=== PATIENT | male | born 1995 | race Caucasian/White ===

== ENCOUNTER 2016-11-25 17:22 | Inpatient (IN) | payer BC, OTHER ==
[~2016-11-25] VITALS: Ht 180.3 cm; Wt 73.0 kg
[2016-11-25] MEDS ORDERED: NS IV 1000 ML 1,000 ML ONE (17:31)
[2016-11-25] MEDS ORDERED: inSUlin (REGULAR) HUMAN 1 UNIT/0.01 ML (CHARGE PER UNIT) IV STA (17:32)
[2016-11-25] MEDS ORDERED: inSUlin (REGULAR) HUMAN 1 UNIT/0.01 ML (CHARGE PER UNIT) ONE (17:32)
[2016-11-25] MEDS ORDERED: FAMOTIDINE 20MG/2ML IV (PEPCID) IV STA (17:32)
[2016-11-25] MEDS ORDERED: NS IV 1000 ML 1,000 ML IV ONE (17:32)
[2016-11-25] MEDS ORDERED: LACTATED RINGERS 1,000 ML IV ONE ×4 (17:37→19:08)
[2016-11-25] MEDS ORDERED: fentaNYL INJECTION 100 MCG/2 ML AMP ONE (17:37)
[2016-11-25 17:39] LABS: BASOPHILS # (AUTO) 0.1 10^3/uL (0.0-0.1); BASOPHILS % (AUTO) 0 % (0-10); EOSINOPHILS % (AUTO) 0 % (0-10); LYMPHOCYTES # (AUTO) 2.8 X 10^3 (1.0-4.0); LYMPHOCYTES % (AUTO) 15 % (12-44); MEAN CORPUSCULAR HEMOGLOBIN 30 PG (25-34); MEAN CORPUSCULAR HGB CONC 35 G/DL (32-36); MEAN CORPUSCULAR VOLUME 84 FL (80-99); MEAN PLATELET VOLUME 12.5 FL (7.4-10.4); MONOCYTES # (AUTO) 1.3 X 10^3 (0.0-1.0); MONOCYTES % (AUTO) 7 % (0-12); NEUTROPHILS # (AUTO) 14.9 X 10^3 (1.8-7.8); NEUTROPHILS % (AUTO) 78 % (42-75); PLATELET COUNT 176 10^3/uL (130-400); RED BLOOD COUNT 5.35 10^6/uL (4.35-5.85); RED CELL DISTRIBUTION WIDTH 12.5 % (10.0-14.5); WHITE BLOOD COUNT 19.1 10^3/uL (4.3-11.0)
[2016-11-25] MEDS ORDERED: fentaNYL INJECTION 100 MCG/2 ML AMP IVP STA (17:39)
[2016-11-25] MEDS ORDERED: ONDANSETRON 4 MG/2 ML (SDV) Z0FRAN IVP ONE (17:45)
--- NOTE | 2016-11-25 17:55 | ED General ---
General Stated Complaint: VOMITING,HIGH SUGARS,CHEST PAIN Source of Information: Patient Exam Limitations: No Limitations History of Present Illness Time Seen by Provider: 17:26 Initial Comments Here with report of high blood sugars over the last 24 hours. Patient is on insulin pump and has bolused a few times to try to get her sugars down and he can't seem to get them down. Reports increasing nausea and vomiting. He did try to eat today but was unable to eat due to nausea and vomiting. He is also complaining of upper chest pain across shoulders and upper chest. Denies fever or chills. Denies diarrhea. He was having increased urination but that has also decreased now. He has been diabetic for approximately 1-1/2 years. Timing/Duration: 24 Hours Severity: Moderate, Severe Associated Systoms: Chest Pain, No Cough, Diaphoresis, No Fever/Chills, Nausea/ Vomiting, No Shortness of Air, Weakness Allergies and Home Medications Allergies Coded Allergies: No Known Drug Allergies (Unverified , 11/25/16) Home Medications Insulin Aspart 100 Unit/1 Ml Susp, PER INSULIN POD, (Reported) 0.65 UNITS HR Constitutional: see HPI, No chills, diaphoresis, No fever, malaise, weakness EENTM: no symptoms reported Respiratory: no symptoms reported, No cough, No short of breath Cardiovascular: chest pain, No edema Gastrointestinal: no symptoms reported, No abdominal pain, No diarrhea, nausea , vomiting Genitourinary: see HPI, No pain Musculoskeletal: no symptoms reported Skin: no symptoms reported Psychiatric/Neurological: See HPI, Denies Headache, Weakness Hematologic/Lymphatic: No Symptoms Reported All Other Systems Reviewed Negative Unless Noted: Yes Past Cvdzvdm-Ivrsvg-Lotcai Hx Patient Social History Alcohol Use: Denies Use Recreational Drug Use: No Smoking Status: Never a Smoker Surgeries HX Surgeries: No Respiratory Hx Respiratory Disorders: No Cardiovascular Hx Cardiac Disorders: No Neurological Hx Neurological Disorders: No Genitourinary Hx Genitourinary Disorders: No Gastrointestinal Hx Gastrointestinal Disorders: No Musculoskeletal Hx Musculoskeletal Disorders: No Endocrine Hx Endocrine Disorders: Yes Endocrine Disorders: Diabetes, Insulin dep HEENT HX ENT Disorders: No Cancer Hx Cancer: No Reviewed Nursing Assessment Reviewed/Agree w Nursing PMH: Yes Family Medical History Significant Family History: No Pertinent Family Hx Physical Exam Vital Signs Vital Sign - Last 12Hours 11/25/16 11/25/16 11/25/16 00:00 17:25 19:46 Temp 98.2 Pulse 112 Resp 20 B/P (MAP) 98/56 Pulse Ox 98 O2 Delivery Room Air Capillary Refill : General Appearance: WD/WN, Mild Distress (weakness and nausea with upper chest pain) HEENT: PERRL/EOMI, Pharynx Normal Neck: Non Tender, Supple Respiratory: Lungs Clear, Normal Breath Sounds Cardiovascular: Regular Rate, Rhythm, No Murmur Gastrointestinal: Non Tender, Soft Back: Normal Inspection, No CVA Tenderness, No Vertebral Tenderness Extremity: Non Tender, No Calf Tenderness Neurologic/Psychiatric: Alert, Oriented x3 Skin: Normal Color, Warm/Dry Progress/Results/Core Measures Results/Orders Lab Results Laboratory Tests Test 11/25/16 16:30 11/25/16 17:32 11/25/16 18:24 11/25/16 20:21 Range/Units White Blood Count 19.1 H 4.3-11.0 10^3/uL Red Blood Count 5.35 4.35-5.85 10^6/uL Hemoglobin 15.8 13.3-17.7 G/DL Hematocrit 45 40-54 % Mean Corpuscular Volume 84 80-99 FL Mean Corpuscular Hemoglobin 30 25-34 PG Mean Corpuscular Hemoglobin Concent 35 32-36 G/DL Red Cell Distribution Width 12.5 10.0-14.5 % Platelet Count 176 130-400 10^3/uL Mean Platelet Volume 12.5 H 7.4-10.4 FL Neutrophils (%) (Auto) 78 H 42-75 % Lymphocytes (%) (Auto) 15 12-44 % Monocytes (%) (Auto) 7 0-12 % Eosinophils (%) (Auto) 0 0-10 % Basophils (%) (Auto) 0 0-10 % Neutrophils # (Auto) 14.9 H 1.8-7.8 X 10^3 Lymphocytes # (Auto) 2.8 1.0-4.0 X 10^3 Monocytes # (Auto) 1.3 H 0.0-1.0 X 10^3 Eosinophils # (Auto) 0.0 0.0-0.3 10^3/uL Basophils # (Auto) 0.1 0.0-0.1 10^3/uL Neutrophils % (Manual) 75 % Lymphocytes % (Manual) 12 % Monocytes % (Manual) 5 % Eosinophils % (Manual) 0 % Basophils % (Manual) 2 % Band Neutrophils 6 % Blood Morphology Comment NORMAL Sodium Level 135 136 135-145 MMOL/L Potassium Level 4.5 5.0 3.6-5.0 MMOL/L Chloride Level 100 106 98-107 MMOL/L Carbon Dioxide Level 10 L 13 L 21-32 MMOL/L Anion Gap 25 H 17 H 5-14 MMOL/L Blood Urea Nitrogen 27 H 23 H 7-18 MG/DL Creatinine 1.42 H 1.16 0.60-1.30 MG/DL Estimat Glomerular Filtration Rate > 60 > 60 BUN/Creatinine Ratio 19 20 Glucose Level 428 *H 270 H 70-105 MG/DL Calcium Level 10.4 H 8.8 8.5-10.1 MG/DL Phosphorus Level 4.3 3.5 2.3-4.7 MG/DL Magnesium Level 2.0 1.7 L 1.8-2.4 MG/DL Total Bilirubin 1.5 H 0.1-1.0 MG/DL Aspartate Amino Transf (AST/SGOT) 22 5-34 U/L Alanine Aminotransferase (ALT/SGPT) 31 0-55 U/L Alkaline Phosphatase 105 40-136 U/L Total Protein 8.2 6.4-8.2 G/DL Albumin 4.8 H 3.2-4.5 G/DL Glucometer 445 *H 279 H 70-110 MG/DL Test 11/25/16 20:57 11/25/16 21:58 11/25/16 23:02 11/26/16 00:02 Range/Units Glucometer 246 H 267 H 278 H 70-110 MG/DL Sodium Level 135 135-145 MMOL/L Potassium Level 4.3 3.6-5.0 MMOL/L Chloride Level 109 H 98-107 MMOL/L Carbon Dioxide Level 15 L 21-32 MMOL/L Anion Gap 11 5-14 MMOL/L Blood Urea Nitrogen 18 7-18 MG/DL Creatinine 1.08 0.60-1.30 MG/DL Estimat Glomerular Filtration Rate > 60 BUN/Creatinine Ratio 17 Glucose Level 276 H 70-105 MG/DL Calcium Level 8.6 8.5-10.1 MG/DL Test 11/26/16 00:03 11/26/16 01:02 11/26/16 02:05 11/26/16 03:15 Range/Units Glucometer 257 H 254 H 256 H 70-110 MG/DL Urine Color YELLOW Urine Clarity CLEAR Urine pH 5 5-9 Urine Specific [place] 1.010 L 1.016-1.022 Urine Protein NEGATIVE NEGATIVE Urine Glucose (UA) 4+ H NEGATIVE Urine Ketones 3+ H NEGATIVE Urine Nitrite NEGATIVE NEGATIVE Urine Bilirubin NEGATIVE NEGATIVE Urine Urobilinogen NORMAL NORMAL MG/DL Urine Leukocyte Esterase NEGATIVE NEGATIVE Urine RBC (Auto) NEGATIVE NEGATIVE Urine RBC NONE /HPF Urine WBC NONE /HPF Urine Squamous Epithelial Cells RARE /HPF Urine Crystals NONE /LPF Urine Bacteria NEGATIVE /HPF Urine Casts NONE /LPF Urine Mucus NEGATIVE /LPF Urine Culture Indicated NO Test 11/26/16 03:17 11/26/16 05:13 11/26/16 06:14 11/26/16 07:03 Range/Units Glucometer 221 H 161 H 142 H 95 70-110 MG/DL Test 11/26/16 07:58 11/26/16 08:00 11/26/16 09:02 11/26/16 10:16 Range/Units White Blood Count 10.3 4.3-11.0 10^3/uL Red Blood Count 4.78 4.35-5.85 10^6/uL Hemoglobin 14.2 13.3-17.7 G/DL Hematocrit 40 40-54 % Mean Corpuscular Volume 84 80-99 FL Mean Corpuscular Hemoglobin 30 25-34 PG Mean Corpuscular Hemoglobin Concent 35 32-36 G/DL Red Cell Distribution Width 12.6 10.0-14.5 % Platelet Count 151 130-400 10^3/uL Mean Platelet Volume 12.4 H 7.4-10.4 FL Neutrophils (%) (Auto) 61 42-75 % Lymphocytes (%) (Auto) 25 12-44 % Monocytes (%) (Auto) 13 H 0-12 % Eosinophils (%) (Auto) 1 0-10 % Basophils (%) (Auto) 0 0-10 % Neutrophils # (Auto) 6.4 1.8-7.8 X 10^3 Lymphocytes # (Auto) 2.6 1.0-4.0 X 10^3 Monocytes # (Auto) 1.3 H 0.0-1.0 X 10^3 Eosinophils # (Auto) 0.1 0.0-0.3 10^3/uL Basophils # (Auto) 0.0 0.0-0.1 10^3/uL Sodium Level 140 135-145 MMOL/L Potassium Level 3.8 3.6-5.0 MMOL/L Chloride Level 114 H 98-107 MMOL/L Carbon Dioxide Level 20 L 21-32 MMOL/L Anion Gap 6 5-14 MMOL/L Blood Urea Nitrogen 11 7-18 MG/DL Creatinine 1.00 0.60-1.30 MG/DL Estimat Glomerular Filtration Rate > 60 BUN/Creatinine Ratio 11 Glucose Level 57 *L 70-105 MG/DL Calcium Level 8.9 8.5-10.1 MG/DL Glucometer 57 *L 145 H 173 H 70-110 MG/DL Test 11/26/16 11:06 11/26/16 11:28 11/26/16 12:30 11/26/16 12:58 Range/Units Glucometer 191 H 210 H 202 H 194 H 70-110 MG/DL Test 11/26/16 13:59 Range/Units Glucometer 176 H 70-110 MG/DL My Orders Orders - CARLOS ZABALA MD Cbc With Automated Diff (11/25/16 17:32) Comprehensive Metabolic Panel (11/25/16 17:32) Magnesium (11/25/16 17:32) Phosphorus (11/25/16 17:32) Saline Lock/Iv-Start (11/25/16 17:32) Ns Iv 1000 Ml (Sodium Chloride 0.9%) (11/25/16 17:32) Ondansetron Injection (Zofran Injectio (11/25/16 17:45) Famotidine Injection (Pepcid Injection) (11/25/16 17:32) Accucheck Stat ONCE (11/25/16 17:32) Insulin (Regular) Human (Humulin R (Per (11/25/16 17:32) Ns Iv 1000 Ml (Sodium Chloride 0.9%) (11/25/16 17:31) Insulin (Regular) Human (Humulin R (Per (11/25/16 17:32) Fentanyl Injection (Sublimaze Injection (11/25/16 17:39) Saline Lock/Iv-Start (11/25/16 17:39) Lactated Ringers (Lr 1000 Ml Iv Solution (11/25/16 17:39) Manual Differential (11/25/16 16:30) Lactated Ringers (Lr 1000 Ml Iv Solution (11/25/16 17:37) Fentanyl Injection (Sublimaze Injection (11/25/16 17:37) Iv Push Brusher Tender Ed (11/25/16 ) Progress Note : Progress Note Seen and evaluated. IV, labs and UA ordered. Insulin 10 units IV. Normal saline 1 L bolus. Second IV with LR 1 L bolus. Monitor patient. Patient did receive third liter of fluid with LR. Dr. Holden assisted with admission. Dr. Centeno called and accepts patient for admission. Patient is in DKA and is severely dehydrated. Improving after fluids but did report fourth liter in the emergency department to get UA. Admit, inpatient status. Patient and family agree to plan. Departure Communication Time/Spoke to Admitting Phy: 18:39 Impression Impression: Primary Impression: Diabetic ketoacidosis associated with type 1 diabetes mellitus Qualified Codes: E10.10 - Type 1 diabetes mellitus with ketoacidosis without coma Additional Impressions: Nausea and vomiting Qualified Codes: R11.2 - Nausea with vomiting, unspecified Dehydration Disposition: 09 ADMITTED INPATIENT Condition: Stable Decision to Admit Reason: Admit from ER (General) Decision to Admit/Date: November 25, 2016 Time/Decision to Admit Time: 18:39 Departure-Patient Inst. Referrals: CACHORRO SOLORZANO MD (PCP) Primary Care Physician CARLOS ZABALA MD November 25, 2016 17:55
[2016-11-25 17:57] LABS: ALANINE AMINOTRANSFERASE 31 U/L (0-55); ALBUMIN 4.8 G/DL (3.2-4.5); ANION GAP 25 MMOL/L (5-14); ASPARTATE AMINO TRANSFERASE 22 U/L (5-34); BILIRUBIN,TOTAL 1.5 MG/DL (0.1-1.0); BLOOD UREA NITROGEN 27 MG/DL (7-18); BUN/CREATININE RATIO 19; CALCIUM 10.4 MG/DL (8.5-10.1); CARBON DIOXIDE 10 MMOL/L (21-32); CHLORIDE 100 MMOL/L (98-107); CREATININE SERUM 1.42 MG/DL (0.60-1.30); GFR ESTIMATED > 60; PHOSPHORUS 4.3 MG/DL (2.3-4.7); POTASSIUM 4.5 MMOL/L (3.6-5.0); SODIUM 135 MMOL/L (135-145); TOTAL PROTEIN 8.2 G/DL (6.4-8.2)
[2016-11-25 18:06] LABS: GLUCOSE 428 MG/DL (70-105)
[2016-11-25 18:26] LABS: BAND NEUTROPHILS 6 %; BASOPHILS % (MANUAL) 2 %; EOSINOPHILS % (MANUAL) 0 %; LYMPHOCYTES % (MANUAL) 12 %; NEUTROPHILS % (MANUAL) 75 %
--- NOTE | 2016-11-25 19:08 | Diagnostic Imaging Report ---
INDICATION: Chest pain, nausea and vomiting. DISCUSSION: Single portable upright view of the chest was obtained, no comparison. Right hilar fullness is noted, possible perihilar infiltrate, less likely adenopathy. The left lung is well aerated. No pleural fluid or pneumothorax. Normal heart size. No acute osseous abnormality. IMPRESSION: 1. Suspect right perihilar infiltrate, possible pneumonia. Recommend short-term radiographic followup with two views of the chest for further evaluation. Dictated by: Dictated on workstation # [id number]
[2016-11-25] MEDS ORDERED: [UNRECOGNIZED DRUG - OTHER] SC (19:29)
[2016-11-25 20:14] VITALS: BP 108/73
[2016-11-25] MEDS ORDERED: REGULAR inSUlin DRIP 250 UNITS/NS 250 ML IV SCH ×2 (20:30)
[2016-11-25] MEDS ORDERED: D5 1/2 NS IV 1,000 ML IV SCH (20:30)
[2016-11-25] MEDS ORDERED: ONDANSETRON 4 MG/2 ML (SDV) Z0FRAN IV PRN (20:30)
[2016-11-25] MEDS ORDERED: CATHETER FLUSH 10 ML SYR IV PRN (20:30)
[2016-11-25] MEDS: 1/2 NS W/KCL 20 MEQ/L 1,000 ML IV SCH (20:55)
[2016-11-25] MEDS: D5 1/2 NS W/KCL 20 MEQ/L 1,000 ML IV SCH (20:59)
[2016-11-25 21:00] VITALS: BP 111/63
[2016-11-25] MEDS ORDERED: FAMOTIDINE 20MG/2ML IV (PEPCID) IV SCH (21:00)
[2016-11-25 21:05] LABS: ANION GAP 17 MMOL/L (5-14); BLOOD UREA NITROGEN 23 MG/DL (7-18); BUN/CREATININE RATIO 20; CARBON DIOXIDE 13 MMOL/L (21-32); CHLORIDE 106 MMOL/L (98-107); CREATININE SERUM 1.16 MG/DL (0.60-1.30); SODIUM 136 MMOL/L (135-145)
[2016-11-25 21:06] LABS: CALCIUM 8.8 MG/DL (8.5-10.1); GFR ESTIMATED > 60; GLUCOSE 270 MG/DL (70-105); MAGNESIUM 1.7 MG/DL (1.8-2.4); PHOSPHORUS 3.5 MG/DL (2.3-4.7)
[2016-11-25 22:00] VITALS: BP 102/45
[2016-11-25] MEDS ORDERED: CATHETER FLUSH 10 ML SYR IV SCH (22:00)
[2016-11-25 23:00] VITALS: BP 107/51
[2016-11-26] VITALS (15 sets, daily range): BP systolic 93–119; BP diastolic 45–72
[2016-11-26 00:24] LABS: ANION GAP 11 MMOL/L (5-14); BLOOD UREA NITROGEN 18 MG/DL (7-18); BUN/CREATININE RATIO 17; CALCIUM 8.6 MG/DL (8.5-10.1); CARBON DIOXIDE 15 MMOL/L (21-32); CHLORIDE 109 MMOL/L (98-107); CREATININE SERUM 1.08 MG/DL (0.60-1.30); GFR ESTIMATED > 60; GLUCOSE 276 MG/DL (70-105); POTASSIUM 4.3 MMOL/L (3.6-5.0); SODIUM 135 MMOL/L (135-145)
[2016-11-26] MEDS: 1/2 NS W/KCL 20 MEQ/L 1,000 ML IV SCH ×4 (00:56→12:53)
[2016-11-26] MEDS: DEXTROSE 10% IV SOLUTION 1,000 ML IV SCH ×2 (00:56→06:33)
[2016-11-26] MEDS: D5 1/2 NS W/KCL 20 MEQ/L 1,000 ML IV SCH ×4 (01:06→12:53)
[2016-11-26 03:28] LABS: BILIRUBIN,URINE NEGATIVE (NEGATIVE); KETONES,URINE 3+ (NEGATIVE); LEUKOCYTE ESTERASE ,URINE NEGATIVE (NEGATIVE); NITRITE,URINE NEGATIVE (NEGATIVE); PH,URINE 5 (5-9); PROTEIN,URINE NEGATIVE (NEGATIVE); UROBILINOGEN,URINE NORMAL (NORMAL)
[2016-11-26 03:39] LABS: SQUAMOUS EPITHELIAL CELL,UR RARE /HPF
--- NOTE | 2016-11-26 07:05 | History & Physicial ---
History of Present Illness History of Present Illness Reason for visit/HPI 20-year-old male presents to [facility] emergency department with elevated glucose values over the past 24 hours. Patient has been a diabetic now for approximately 2 years and recently he was started on an insulin pump. The insulin pump had been working very well for him keeping his blood glucose values very well controlled. On day of presentation he apparently was having issues with nausea and vomiting. He was unable to eat. He also admitted systems chest discomfort across his shoulders and upper chest. Patient gave himself a few boluses of insulin with the pump to see if this would help. She also admits to decreased urine output. He denies any significant cough. Date of Admission November 25, 2016 at 18:39 I consulted on this patient on 11/26/16 07:04 Attending Physician Marvin Topete MD Admitting Physician Marvin Topete MD Consult Allergies and Home Medications Allergies Coded Allergies: No Known Drug Allergies (Unverified , 11/25/16) Home Medications [Insulin Pod] , 0.65 UNITS SC HR, (Reported) Past Kfgdpvt-Whivkt-Tjxmns Hx Patient Social History Marrital Status: single Number of Children: 0 Alcohol Use: Denies Use Recreational Drug Use: No Smoking Status: Never a Smoker Physical Abuse Screen: No Sexual Abuse: No Recent Foreign Travel: No Contact w/other who traveled: No Recent Hopitalizations: No Recent Infectious Disease Expo: No Surgeries HX Surgeries: No Respiratory Hx Respiratory Disorders: No Cardiovascular Hx Cardiovascular Disorders: No Neurological Hx Neurological Disorders: No Genitourinary Hx Genitourinary Disorders: No Gastrointestinal Hx Gastrointestinal Disorders: No Musculoskeletal Hx Musculoskeletal Disorders: No Endocrine Hx Endocrine Disorders: Yes Endocrine Disorders: Diabetes, Insulin dep HEENT HX ENT Disorders: No Cancer Hx Cancer: No Reviewed Nursing Assessment Reviewed/Agree w Nursing PMH: Yes Family Medical History Significant Family History: No Pertinent Family Hx Family Hx: Constitutional: see HPI Physical Exam Vital Signs Vital Sign - Last 12Hours 11/25/16 11/25/16 11/25/16 00:00 17:25 19:46 Temp 98.2 Pulse 112 Resp 20 B/P (MAP) 98/56 Pulse Ox 98 O2 Delivery Room Air Capillary Refill : General Appearance: No Apparent Distress Eyes: Bilateral Eye Normal Inspection HEENT: Pharynx Normal (But dry mucous membranes on admission) Neck: Full Range of Motion, Supple Respiratory: Lungs Clear Cardiovascular: Regular Rate, Rhythm Gastrointestinal: Other (Bowel sounds slightly increased) Rectal: Deferred Extremity: Normal Inspection Neurologic/Psychiatric: Oriented x3 Skin: Cool Comments NAME: PORTER MCDANIEL [facility] REC#: [id number] PT STATUS: ADM IN : 1995 PHYSICIAN: PORTER SEQUEIRA MD ADMIT DATE: 11/25/16/ICU Signed Date of Exam: 11/25/16 CHEST 1 VIEW, AP/PA ONLY INDICATION: Chest pain, nausea and vomiting. DISCUSSION: Single portable upright view of the chest was obtained, no comparison. Right hilar fullness is noted, possible perihilar infiltrate, less likely adenopathy. The left lung is well aerated. No pleural fluid or pneumothorax. Normal heart size. No acute osseous abnormality. IMPRESSION: 1. Suspect right perihilar infiltrate, possible pneumonia. Recommend short-term radiographic followup with two views of the chest for further evaluation. Dictated by: Dictated on workstation # [id number] Dict: 11/25/161903 Trans: 11/25/162136 Interpreted by: JOHNIE REYNOSO MD Electronically signed by: JOHNIE REYNOSO MD 11/25/162136 Assessment/Plan Assessment and Plan 1. Diabetic ketoacidosis -Patient to be admitted to intensive care unit for DKA protocol orders. -Careful following of glucose and electrolytes -Monitor urinary output -For now patient is on clear liquid diet and he would be advanced to ADA diet as he improves. 2. Gastroenteritis most likely viral -Clear liquid diet -IV fluid rehydration as above 3. Right-sided lung infiltrate -Plan on rechecking chest x-ray 2 views November 26, 2016 -No antibiotics initiated due to clear lung and no cough or fever Problems: Admission Diagnosis 1. Diabetic ketoacidosis 2. Gastroenteritis-viral 3. Right-sided lung infiltrates Clinical Quality Measures DVT/VTE Risk/Contraindication: Risk Factor Score Per Nursin RFS Level Per Nursing on Admit: 1=Low/No VTE PPX MARVIN TOPETE MD November 26, 2016 07:05
[2016-11-26 08:05] LABS: BASOPHILS % (AUTO) 0 % (0-10); EOSINOPHILS # (AUTO) 0.1 10^3/uL (0.0-0.3); EOSINOPHILS % (AUTO) 1 % (0-10); LYMPHOCYTES # (AUTO) 2.6 X 10^3 (1.0-4.0); LYMPHOCYTES % (AUTO) 25 % (12-44); MEAN CORPUSCULAR HEMOGLOBIN 30 PG (25-34); MEAN CORPUSCULAR HGB CONC 35 G/DL (32-36); MEAN CORPUSCULAR VOLUME 84 FL (80-99); MEAN PLATELET VOLUME 12.4 FL (7.4-10.4); MONOCYTES # (AUTO) 1.3 X 10^3 (0.0-1.0); MONOCYTES % (AUTO) 13 % (0-12); NEUTROPHILS # (AUTO) 6.4 X 10^3 (1.8-7.8); NEUTROPHILS % (AUTO) 61 % (42-75); PLATELET COUNT 151 10^3/uL (130-400); RED BLOOD COUNT 4.78 10^6/uL (4.35-5.85); RED CELL DISTRIBUTION WIDTH 12.6 % (10.0-14.5); WHITE BLOOD COUNT 10.3 10^3/uL (4.3-11.0)
[2016-11-26 08:22] LABS: ANION GAP 6 MMOL/L (5-14); BLOOD UREA NITROGEN 11 MG/DL (7-18); BUN/CREATININE RATIO 11; CALCIUM 8.9 MG/DL (8.5-10.1); CARBON DIOXIDE 20 MMOL/L (21-32); CHLORIDE 114 MMOL/L (98-107); GFR ESTIMATED > 60; POTASSIUM 3.8 MMOL/L (3.6-5.0); SODIUM 140 MMOL/L (135-145)
[2016-11-26 08:23] LABS: GLUCOSE 57 MG/DL (70-105)
--- NOTE | 2016-11-26 08:26 | Diagnostic Imaging Report ---
PA and lateral views of the chest. INDICATION: Right-sided infiltrates. Nausea and vomiting. COMPARISON: 11/25/16. FINDINGS: There is no definite focal infiltrate. The heart size is normal. No effusion or pneumothorax. The mediastinum and jimbo appear unremarkable. There is straightening of the thoracic spine which could be secondary to muscle spasm. IMPRESSION: No cardiopulmonary process. Dictated by: Dictated on workstation # [id number]
[2016-11-26] MEDS ORDERED: FAMOTIDINE 20MG/2ML IV (PEPCID) IV SCH (09:00)
[2016-11-26] MEDS ORDERED: INSU100V16 (09:29)
[2016-11-26] MEDS ORDERED: ACETAMINOPHEN 500 MG TAB (TYLENOL) PO PRN (10:00)
== END 2016-11-26 14:45 | disposition home or self-care (01) | DRG 639 ==
LOC: EDUNIT# 17:22 → ER 17:26 → ICU 18:39
PROVIDERS: ADMIT Family Medicine; ATTEND Family Medicine
DX: E13.10 Other specified diabetes mellitus with ketoacidosis without coma (principal); A08.4 Viral intestinal infection, unspecified; R93.8 Abnormal findings on diagnostic imaging of other specified body structures; Z79.4 Long term (current) use of insulin
CPT/HCPCS: 36415; 71010; 71020; 80048; 80053; 81000; 82962; 83735; 84100; 85007; 85025; 85027; 96361; 96374; 96375